=== PATIENT | male | born 1955 | race Caucasian/White ===

== ENCOUNTER 2018-12-22 07:05 | Day surgery (SDC) | payer MEDICARE, OTHER ==
[~2018-12-22] VITALS: Ht 182.9 cm; Wt 103.4 kg
[~2018-12-22 07:05] MED LIST: AMIODARONE HCL400 MG PO; CORDARONE200 MG PO; DIGOXIN250 MCG PO; FLECAINIDE ACE100 MG PO; FUROSEMIDE20 MG PO; KLOR-CON 1010 MEQ PO; LABETALOL HCL200 MG PO; LISINOPRIL20 MG PO; LOPRESSOR100 MG PO; NORVASC5 MG PO; OMEPRAZOLE40 MG PO; TAMBOCOR100 MG GT; VITAMIN D31000 UNI1 PO; XARELTO20 MG PO
[2018-12-22] MEDS ORDERED: PILOCARPINE HC7.5 MG PO (07:27)
[2018-12-22] MEDS ORDERED: ASPIRIN EC81 MG PO (07:29)
--- NOTE | 2018-12-22 08:58 | NUR ---
12/22/18 0858 Tonja Rodriguez 9368-PATIENT ARRIVED TO PACU ON 3L NC PLACED ON 2L. RR EVEN. PATIENT AWAKE DROWSY DENIES PAIN OR NAUSEA. ENCOURAGED TO PASS GAS. ABDOMEN SOFT. IVF INFUSING.
--- NOTE | 2018-12-22 18:51 | OR ---
[facility] [address], [place] [address] Signed DATE OF OPERATION: 12/22/2018 SURGEON: Juan Schilling MD PREOPERATIVE DIAGNOSES: 1. Personal history of colonic polyps in 2002 and 2007. 2. Diverticulosis. 3. Mother with colon cancer at age 83. POSTOPERATIVE DIAGNOSES: 1. 4 mm polyps at 10, 18, and 35 cm. 2. Flat prostate (brachytherapy). 3. Very minimal sigmoid diverticulosis. PROCEDURE: Colonoscopy with hot biopsy. ESTIMATED BLOOD LOSS: None. INDICATIONS: Andres is a 63-year-old gentleman who comes for followup colonoscopy. He is known to have colonic polyps previously along with some diverticulosis, although today he was quite minimal in that regard. His mother had developed colon cancer at age 83. 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 He just went through radiation therapy. He has also had brachytherapy for his prostate cancer. He returns now for his followup colonoscopy. He said he has no lower GI complaints. I gave him a pamphlet on colonoscopy and we reviewed the nature of the test along with the risks including, but not limited to gas bloating, crampy abdominal pain, bleeding, perforation, requiring surgery, and missed diagnosis. We have also discussed the need for IV conscious sedation. He had expressed his understanding and wished to proceed. PROCEDURE NOTE: Andres was taken into our endoscopy suite and placed in the left lateral decubitus position. He was given 3 mg of Versed and 125 mcg of fentanyl to cover the case. A digital rectal exam was performed. He has good sphincter tone. No external hemorrhoids. His prostate gland has completely flattened. The adult colonoscope was introduced and advanced all around into the cecum under direct visualization of camera without difficulty. His prep was good. We took pictures throughout for photodocumentation. The above-mentioned polyps were easily removed with the help of hot Electronically Signed By: JUAN SCHILLING MD 12/22/18 4178 PATIENT NAME: ANDRES WALKER OPERATIVE REPORT DATE OF : 51 REPORT #: [id number] PHYSICIAN: JUAN SCHILLING MD PCP: ANTHONY RETANA MD REPORT IS CONFIDENTIAL AND NOT TO BE RELEASED WITHOUT AUTHORIZATION [facility] [address], [place] [address] Signed biopsy forceps. We saw very minimal in the way of diverticulosis. These were quite shallow and were more or less clinically insignificant. In the rectum, the scope had been retroflexed and there was no additional pathology noted above the anal canal other than a tiny internal anal skin tag. After this, the gas was suctioned out and the colonoscope removed. Andres tolerated the procedure quite well. RECOMMENDATIONS: I will see Andres back in my office in 7 to 14 days to review his results. Juan Schilling MD ALB/MODL /[id number] cc: MD Yaniv Foster MD Malcolm Townsley, MD Andrew L Bower, MD Copies: EMMETT,DALJITYANIV ASHFORD MD, MD, MALCOLM MD BOWER, ANDREW L MD ~ Electronically Signed By: JUAN SCHILLING MD 12/22/18 1851 PATIENT NAME: ANDRES WALKER OPERATIVE REPORT DATE OF : 51 REPORT #: [id number] PHYSICIAN: JUAN SCHILLING MD PCP: ANTHONY RETANA MD REPORT IS CONFIDENTIAL AND NOT TO BE RELEASED WITHOUT AUTHORIZATION
== END 2018-12-22 09:40 | disposition home or self-care (01) ==
LOC: DS 07:05 → OPS 07:05 → DS 09:00 → OPS 09:00
PROVIDERS: Colon & Rectal Surgery
PROC: 0DBE8ZX Excision of Large Intestine, Via Natural or Artificial Opening Endoscopic, Diagnostic (ICD-10-PCS; principal; 2018-12-22 08:15)
DX: Z12.11 Encounter for screening for malignant neoplasm of colon (principal); K63.5 Polyp of colon; K57.30 Diverticulosis of large intestine without perforation or abscess without bleeding; N42.89 Other specified disorders of prostate; I48.91 Unspecified atrial fibrillation; I10 Essential (primary) hypertension; E78.5 Hyperlipidemia, unspecified; E66.9 Obesity, unspecified; F17.200 Nicotine dependence, unspecified, uncomplicated; Z86.010 Personal history of colon polyps; Z80.0 Family history of malignant neoplasm of digestive organs; Z79.899 Other long term (current) drug therapy; Z79.82 Long term (current) use of aspirin; Z98.890 Other specified postprocedural states
CPT/HCPCS: 99153; G0500; J2250; J3010; J7120

== ENCOUNTER 2025-08-02 05:54 | Day surgery (SDC) | payer MEDICARE, OTHER ==
[2025-08-01 16:30] VITALS: BP 159/97
[~2025-08-02] VITALS: Ht 182.9 cm; Wt 109.0 kg
[~2025-08-02 05:54] MED LIST changes: +ASPIRIN EC81 MG PO; +AVAPRO300 MG PO; +DEPO-TESTO200 MG/1 M IM; +LACTATED RINGER'S 1,000 ML IV SCH; +LEVOTHYROXINE75 MC1 PO; +LIPITOR20 MG PO; +MAGNESIUM400 M1 PO; +METFORMIN HCL500 MG PO; +OZEMPIC1 MG/0.71 SUB-Q; +PILOCARPINE HC7.5 MG PO; +TOPROL XL200 MG PO; -VITAMIN D31000 UNI1 PO; +VITAMIN D350 MC3 PO
[2025-08-02 06:05] VITALS: BP 150/84
[2025-08-02] MEDS ORDERED: LIDOCAINE HCL 2% 5 ML SDV ONE (06:54)
[2025-08-02] MEDS ORDERED: IBLOOD GLUCOSE TEST STRIP 1 EA TEST VI PRN ×2 (07:00→07:30)
[2025-08-02] MEDS ORDERED: CEFAZOLIN SODIUM 2 GM in SODIUM CHLORIDE 0.9% 100 ML IV SCH (07:00)
[2025-08-02] MEDS ORDERED: LIDOCAINE HCL 1% 5 ML SDV INJ ONE (07:00)
[2025-08-02] MEDS ORDERED: NALOXONE HCL 0.4 MG SYR IV PRN (07:30)
--- NOTE | 2025-08-02 08:46 | NUR ---
08/02/25 0846 Tonja Rodriguez 0803-PATIENT ARRIVED TO PACU ON 2L NC RR EVEN PATIENT DROWSY AWAKE DENIES PAIN OR NAUSEA LAYING LEFT LATERAL ABDOMEN SOFT IVF INFUSING. SR HR 60'S. ENCOURAGED TO PASS GAS
[2025-08-02 09:13] VITALS: BP 140/85
--- NOTE | 2025-08-02 11:31 | OR ---
[facility] [address], [place] [address] Signed DATE OF OPERATION: 08/02/2025 SURGEON: Andres Grove MD PREOPERATIVE DIAGNOSES: 1. Family history of colon cancer (mother). 2. History of polyps. POSTOPERATIVE DIAGNOSIS: Pandiverticulosis. No evidence of polyps. PROCEDURE: Total colonoscopy to cecum. ANESTHESIA: Intravenous sedation; propofol infusion, Remedios Bejarano CRNA. INDICATION: This 70-year-old white man is a patient of Dr. Joni Thompson and here for surveillance colonoscopy. He has had numerous colonoscopies by Dr. Jesus Lim in the past 15 to 20 years. His last colonoscopy was seven years ago. He is said to have had polyps on each colonoscopy. Special note, his mother did have colon cancer and he had been outlined for five year plan for colonoscopy routinely based on current guidelines. He currently has no symptoms of bleeding, diarrhea or constipation. He is admitted to undergo colonoscopy. He understands the risk of bleeding, infection, and perforation. FINDINGS: The prep was good. Complete colonoscopy was undertaken of the cecum with full intubation of the cecum. There was scattered diverticula throughout the entire colon. He had no polyps or colitis. DESCRIPTION OF PROCEDURE: The patient was brought to the endoscopy suite and placed in lateral decubitus position, given intravenous sedation to the point of slurred speech and nystagmus with full cardiopulmonary monitoring by the selenium plant operator. Propofol infusional sedation was given. Digital rectal examination was performed and was normal. An Olympus video colonoscope was passed in the rectum and manipulated throughout the colon ultimately intubating the cecum itself. Ileocecal valve and appendiceal orifice Electronically Signed By: ANDRES GROVE MD 08/02/25 1131 PATIENT NAME: ANDRES WALKER OPERATIVE REPORT DATE OF : 51 REPORT #: [id number] PHYSICIAN: ANDRES GROVE MD PCP: DONNA THOMPSON MD REPORT IS CONFIDENTIAL AND NOT TO BE RELEASED WITHOUT AUTHORIZATION [facility] [address], [place] [address] Signed were normal. Scope was withdrawn and diverticula were noted even in the cecal area extending throughout the colon as well. Retroflexed view in the rectum was normal. Scope was removed. The patient was taken to the recovery room in good condition. CONCLUDING DIAGNOSIS: Diverticulosis throughout colon (pandiverticulosis). No evidence of polyps. PLAN: Recommend repeat colonoscopy in 5 years based on family history (mother). Recommend high-fiber diet based on diverticula findings. He will return to the ongoing care of Dr. Thompson as well. MD ZOILA Loza/MERVAT /[id number] cc: Dr. Thompson Copies: ~ Electronically Signed By: ANDRES GROVE MD 08/02/25 1131 PATIENT NAME: ANDRES WALKER OPERATIVE REPORT DATE OF : 51 REPORT #: [id number] PHYSICIAN: ANDRES GROVE MD PCP: DONNA THOMPSON MD REPORT IS CONFIDENTIAL AND NOT TO BE RELEASED WITHOUT AUTHORIZATION
== END 2025-08-02 09:20 | disposition home or self-care (01) ==
LOC: DS 05:54
PROVIDERS: ATTEND Surgery
PROC: 0DJD8ZZ Inspection of Lower Intestinal Tract, Via Natural or Artificial Opening Endoscopic (ICD-10-PCS; principal; 2025-08-02 07:30)
DX: Z12.11 Encounter for screening for malignant neoplasm of colon (principal); K57.30 Diverticulosis of large intestine without perforation or abscess without bleeding; Z86.0100 Personal history of colon polyps, unspecified; Z80.0 Family history of malignant neoplasm of digestive organs; E78.2 Mixed hyperlipidemia; I11.0 Hypertensive heart disease with heart failure; I50.20 Unspecified systolic (congestive) heart failure; I42.8 Other cardiomyopathies
CPT/HCPCS: 00811; J0688; J2003; J2704; J7121